=== PATIENT | female | born 1955 | race Caucasian/White ===

== ENCOUNTER → 2018-07-06 11:03 | Outpatient (CLI) | payer OTHER, SELFPAY ==
--- NOTE | 2018-07-06 | DI.MRI.S_ITS ---
PROCEDURE: MR HEAD/BRAIN WO CON INDICATIONS: Postconcussional syndrome TECHNIQUE: Non-contrast axial T1 spin echo, axial T2 fast spin echo, sagittal and axial FLAIR, coronal T2 fast spin echo, axial gradient echo, axial diffusion and ADC through the brain. COMPARISON: [facility], MR, C-SPINE WITHOUT CONTRAST, 07/22/2016, 10:30. FINDINGS: Image quality: Excellent. CSF spaces: Ventricles appear symmetric in size and shape. Basal cisterns are patent. No extra-axial fluid collections. Brain: No intracranial bleeds or mass effects. There is cerebral volume loss for age. There are periventricular and deep white matter chronic small vessel ischemic changes. Brainstem appears normal. Diffusion-weighted images show no acute ischemic insults. No chronic ischemic insults. Normal intravascular flow voids are present. Skull and face: Calvarial bone marrow is normal in signal. Orbits are normal. Sinuses: Sinuses and mastoids are clear. There is mild leftward nasal septal deviation incidentally noted. IMPRESSION: Unremarkable intracranial study for age, without focal brain edema or intracranial hemorrhage identified. No findings of acute or subacute infarction can be seen. Note is made of age-appropriate brain parenchymal volume loss and chronic small vessel ischemic changes. Dictated by: Edu Mcintosh M.D. on 07/06/2018 at 12:15 Approved by: Edu Mcintosh M.D. on 07/06/2018 at 12:18
== END ==
PROVIDERS: PCP Naturopath; Referring Provider Naturopath; Visit Provider Physician Assistant
DX: F07.81 Postconcussional syndrome (principal)
CPT/HCPCS: 70551

== ENCOUNTER → 2023-02-28 11:00 | Outpatient (CLI) | payer MEDICARE, SELFPAY ==
--- NOTE | 2023-02-28 | DI.CT.S_ITS ---
PROCEDURE: CT HEAD/BRAIN WO CON INDICATIONS: CONCUSSION WITHOUT LOSS OF CONSCIOUSNESS TECHNIQUE: Noncontrast 4.5 mm thick angled axial sections acquired from the foramen magnum to the vertex, with coronal and sagittal reformats. For radiation dose reduction, the following was used: automated exposure control, adjustment of mA and/or kV according to patient size. COMPARISON: [facility], , MR HEAD/BRAIN WO CON, 07/06/2018, 12:25. FINDINGS: Image quality: Excellent. CSF spaces: Basal cisterns are patent. No extra-axial fluid collections. Ventricles are normal in size and shape. Brain: No midline shift. No intracranial masses or hemorrhage. Mild age-related global volume loss. Verde-white matter interface is normal. Skull and face: Calvarium and visualized facial bones are intact, without suspicious lesions. Sinuses: Visualized sinuses and mastoids are clear. IMPRESSION: No acute intracranial pathology. Dictated by: Abilio Wallace M.D. on 02/28/2023 at 12:22 Approved by: Abilio Wallace M.D. on 02/28/2023 at 12:23
== END ==
PROVIDERS: PCP Naturopath; Referring Provider Physician Assistant Medical; Visit Provider Physician Assistant Medical
DX: S06.0X0A Concussion without loss of consciousness, initial encounter (principal); X58.XXXA Exposure to other specified factors, initial encounter
CPT/HCPCS: 70450